=== PATIENT | female | born 2000 | race Caucasian/White ===

== ENCOUNTER → 2019-03-17 | Outpatient (CLI) | payer OTHER, SELFPAY ==
[2019-03-17 15:59] VITALS: BMI 17.7
[2019-03-18 01:51] LABS: Absolute Lymphocyte Count 1.53 X10^3/uL (0.83-4.51); Absolute Neutrophil Count 5.3 X10^3/uL (2.0-7.7); Basophil# 0.03 X10^3/uL; Basophil% 0.4 % (0-1); Eosinophil# 0.12 X10^3/uL; Eosinophils% 1.6 % (0-5); Hematocrit 35.7 % (37-47); Lymphocyte # 1.53 X10^3/ul (4.0); Lymphocyte % 19.9 % (19-41); Mean Corp Hgb Conc 33.6 g/dL (32-36); Mean Corpuscular Hgb 28.2 pg (27.0-32.0); Mean Corpuscular Volume 83.8 fL (81-99); Mean Platelet Vol. 10.3 fl (6.2-12.0); Monocyte# 0.67 X10^3/uL; Monocyte% 8.7 % (0-10); NRBC Flagged by Analyzer 0 % (0-5); Neutrophil % 69.1 % (47-70); Platelet Count 256 K/mm3 (150-450); RBC Distribution Width SD 36.2 fl (35.1-43.9); Red Blood Count 4.26 M/mm3 (4.2-5.4); White Blood Count 7.7 K/mm3 (4.4-11.0)
== END | disposition home or self-care (01) ==
PROVIDERS: Referring Provider Nurse Practitioner; Visit Provider Nurse Practitioner
DX: B27.90 Infectious mononucleosis, unspecified without complication (principal)
CPT/HCPCS: 85025

== ENCOUNTER → 2022-06-23 | Outpatient (CLI) | payer OTHER, SELFPAY ==
[2022-07-08 18:32] LABS: HPV Reflexed? NOT INDICATED
== END | disposition home or self-care (01) ==
PROVIDERS: Visit Provider Nurse Practitioner
DX: Z01.419 Encounter for gynecological examination (general) (routine) without abnormal findings (principal)
CPT/HCPCS: 88175; G0145

== ENCOUNTER → 2024-06-17 | Outpatient (CLI) | payer OTHER, SELFPAY ==
[2024-06-27 21:08] LABS: HPV Reflexed? NOT INDICATED
== END | disposition home or self-care (01) ==
PROVIDERS: PCP Nurse Practitioner; Referring Provider Nurse Practitioner; Visit Provider Nurse Practitioner
DX: Z01.419 Encounter for gynecological examination (general) (routine) without abnormal findings (principal)
CPT/HCPCS: 88175; G0145

== ENCOUNTER → 2025-03-09 | Outpatient (CLI) | payer OTHER, SELFPAY ==
--- OUTSIDE RECORDS SUMMARY | 2025-03-09 22:27 | XMS RPT_ITS | CCD ---
Author Organization [facility] Care Team Providers Care Sales Account Coordinator Name Role Phone Zenaida Grigsby Unavailable Unavailable Grigsby, Zenaida Lincoln Unavailable Unavailable Grigsby, Zenaida Lincoln Unavailable Unavailable AILEENANTONI Unavailable Unavailable AILEEN, ANTONI Bravo Unavailable Unavailable Grigsby, Zenaida Lincoln Unavailable Unavailable Grigsby, Zenaida Lincoln Unavailable Unavailable Grigsby, Zenaida Lincoln Unavailable Unavailable Grigsby, Zenaida Lincoln Unavailable Unavailable JANE PLATT Unavailable Unavailable Grigsby, Zenaida Lincoln Unavailable Unavailable Grigsby, Zenaida Lincoln Unavailable Unavailable Grigsby, Zenaida Lincoln Unavailable Unavailable Grigsby, Zenaida Lincoln Unavailable Unavailable Kenney Thorne Unavailable [phone] Unavailable Unavailable MD BURROUGHS STEVEN Attending Unavailable KENNEY THORNE Primary Care Unavailable JOEL PARSON Attending UnavailKENNEY Nelson Primary Care Unavailable Jaiden HIDE PASTER-Kenney MARY Primary Care Provide r Kenney Thorne Referring Unavailable Kenney Thorne Unavailable Kenney Thorne Primary Care Unavailable Medications Current Medications Medication Drug Class(es) Dates Sig (Normalized) Sig (Original) amoxicillin 500 mg oral capsule (4 sources) Penicillin-class Antibacterial Start: 05-15-2024 End: 05-22-2024 take 1 capsule by mouth every eight hours amoxicillin (Amoxil) 500 mg capsule Indications: Tooth ache Take 1 capsule (500 mg) by mouth every 8 hours for 7 days. 21 capsule 05/15/2024 05/22/2024 Active Start: 10-25-2021 End: 12-05-2021 take 875 mg by mouth twice daily Amoxicillin Discontinued 875 MG PO TWICE A DAY October 24, 2021 11:00pm December 05, 2021 5:54pm Start: 03-06-2021 End: 04-03-2021 take 875 mg by mouth twice daily Amoxicillin Discontinued 875 MG PO TWICE A DAY March 05, 2021 11:00pm April 03, 2021 4:38pm Start: 04-04-2020 End: 07-20-2020 take 500 mg by mouth twice daily Amoxicillin Discontinued 500 MG PO TWICE A DAY April 03, 2020 11:00pm July 20, 2020 10:40am Levonorgestrel-Ethinyl Estrad (5 sources) Progestin, Estrogen, Progestin-containing Intrauterine Device Start: 06-23-2022 take 1 tablet by mouth once daily Levonorgestrel-Ethinyl Estrad Active 1 TABLET PO DAILY June 23, 2022 5:38pm Start: 06-20-2021 End: 06-23-2022 take 1 tablet by mouth once daily Levonorgestrel-Ethinyl Estrad Discontinued 1 TABLET PO DAILY June 20, 2021 7:49pm June 23, 2022 5:46pm Start: 07-19-2020 End: 06-20-2021 take 1 tablet by mouth once daily Levonorgestrel-Ethinyl Estrad Discontinued 1 TABLET PO DAILY July 19, 2020 12:00am June 20, 2021 7:49pm take 1 tablet by issac th once daily levonorgestreL-ethinyl estrad (Nordette) 0.15-0.03 mg tablet Take 1 tablet by mouth once daily. Active multivitamin capsule (1 source) Start: 02-25-2018 take 1 capsule by mouth once daily multivitamin capsule Active 1 CAP PO DAILY February 24, 2018 11:00pm Completed/Discontinued Medications Medication Drug Class(es) Dates Sig (Normalized) Sig (Original) amoxicillin 875 mg / clavulanate 125 mg oral tablet (4 sources) Penicillin-class Antibacterial Start: 03-11-2022 End: 06-02-2022 take 1 tablet by mouth twice daily Amoxicillin-Pot Clavulanate Discontinued 1 TABLET PO TWICE A DAY March 10, 2022 11:00pm June 02, 2022 5:05pm Start: 12-05-2021 End: 01-30-2022 take 1 tablet by mouth twice daily Amoxicillin-Pot Clavulanate Discontinued 1 TABLET PO TWICE A DAY December 04, 2021 11:00pm January 30, 2022 5:36pm Start: 07-15-2021 Amoxicillin-Po t Clavulanate 875-125 MG Oral Tablet Quantity: 20 Refills: 0 Ordered: 15-Jul-2021 DO Start : 15-Jul-2021 Complete Start: 06-13-2021 End: 07-30-2021 take 1 tablet by mouth twice daily Amoxicillin-Pot Clavulanate Discontinued 1 TABLET PO TWICE A DAY June 13, 2021 12:00am July 30, 2021 6:00pm azithromycin 250 mg oral tablet (3 sources) Macrolide Antimicrobial Start: 03-03-2022 End: 03-08-2022 Azithromycin Discontinued 250 MG PO daily 6 5 March 03, 2022 7:20pm March 07, 2022 11:05pm 2 po qd for 1 day then 1 po qd for 4 days with food or after eating Start: 01-30-2022 End: 02-04-2022 Azithromycin Discontinued 25 0 MG PO daily 6 5 January 29, 2022 11:00pm February 03, 2022 11:03pm 2 po qd for 1 day then 1 po qd for 4 days with food or after eating Start: 03-19-2019 End: 03-24-2019 Azithromycin Discontinued 25 0 MG PO daily 6 5 March 18, 2019 11:00pm March 23, 2019 11:07pm 2 po qd for 1 day then 1 po qd for 4 days with food or after eating cefdinir 300 mg oral capsule (3 sources) Cephalosporin Antibacterial Start: 06-02-2022 End: 06-23-2022 take 300 mg by mouth twice daily Cefdinir Discontinued 300 MG PO TWICE A DAY June 02, 2022 5:08pm June 23, 2022 5:46pm Start: 04-03-2021 Cefdinir 300 M G Oral Capsule Quantity: 20 Refills: 0 Ordered: 03-Apr-2021 DO Start : 03-Apr-2021 Complete Start: 04-03-2021 End: 06-13-2021 take 300 mg by mouth twice daily Cefdinir Discontinued 300 MG PO TWICE A DAY April 02, 2021 11:00pm June 13, 2021 4:42pm cephalexin 250 mg oral capsule (1 source) Cephalosporin Antibacterial Start: 11-29-2019 End: 04-04-2020 take 250 mg by mouth twice daily Cephalexin Discontinued 250 MG PO TWICE A DAY November 28, 2019 11:00pm April 04, 2020 2:26pm ciprofloxacin 500 mg oral tablet (2 sources) Quinolone Antimicrobial Start: 07-30-2021 End: 10-25-2021 take 1 tablet by mouth twice daily Ciprofloxacin HCl - 500 MG Oral Tablet TAKE 1 TABLET BY MOUTH TWICE DAILY Quantity: 14 Refills: 0 Ordered: 30-Jul-2021 DO Start : 30-Jul-2021 Complete clotrimazole 10 mg/ml topical cream (1 source) Azole Antifungal Start: 02-24-2018 Clotrimazole 1 % External Cream APPLY SPARINGLY TO AFFECTED AREA(S) TWICE DAILY Quantity: 1 Refills: 1 Ordered: 24-Feb-2018 Zenaida Grigsby MD Start : 24-Feb-2018 Active Drospirenone-Ethiny l Estradiol (3 sources) Progestin, Estrogen Start: 09-13-2019 End: 07-19-2020 take 1 tablet by mouth once daily Drospirenone-Ethiny l Estradiol Discontinued 1 TABLET PO DAILY September 13, 2019 8:30pm July 19, 2020 6:41pm Start: 08-16-2019 End: 09-13-2019 take 1 tablet by mouth once daily Drospirenone-Ethinyl Estradiol Discontinued 1 TABLET PO DAILY August 16, 2019 8:02pm September 13, 2019 8:30pm Start: 11-01-2018 End: 08-16-2019 take 1 tablet by mouth once daily Drospirenone-Ethinyl Estradiol Discontinued 1 TABLET PO DAILY October 31, 2018 11:00pm August 16, 2019 8:03pm Norethindrone-E.Estradiol-Ir on (1 source) Estrogen Start: 07-21-2018 End: 03-17-2019 Norethindrone-E.Estradiol-Ir on (07/25 (28)) 1 mg-20 mcg (21)/75 mg (7) tablet Discontinued 1 TABLET PO DAILY July 21, 2018 12:00am March 17, 2019 3:02pm fluconazole 150 mg oral tabl et (3 sources) Azole Antifungal Start: 10-25-2021 Fluconazole 150 MG Oral Tabl et Quantity: 2 Refills: 0 Ordered: 25-Oct-2021 DO Start : 25-Oct-2021 Complete Start: 07-30-2021 End: 03-04-2022 Fluconazole Discontinued 150 MG PO Q3D 2 October 25, 2021 7:17pm March 04, 2022 10:39am Marlissa 0.15-30 MG-MCG Oral Tablet (1 source) Start: 06-20-2021 take 1 tablet by mouth once daily Marlissa 0.15-30 MG-MCG Oral Tablet TAKE 1 TABLET BY MOUTH DAILY Quantity: 28 Refills: 0 Ordered: 06-Nov-2021 DO Start : 20-Jun-2021 Active meclizine hydrochloride 12.5 mg oral tablet (2 sources) Antiemetic Start: 06-13-2021 Meclizine HCl - 12.5 MG Oral Tablet Quantity: 40 Refills: 0 Ordered: 13-Jun-2021 DO Start : 13-Jun-2021 Complete Start: 06-13-2021 take 12.5 mg by mout h three times daily Meclizine Active 12.5 MG PO THREE TIMES A DAY June 13, 2021 12:00am predniSONE 20 mg oral tablet (2 sources) Start: 12-05-2021 End: 01-30-2022 take 40 mg by mouth once daily Prednisone Discontinued 40 MG PO DAILY December 04, 2021 11:00pm January 30, 2022 5:36pm Start: 03-17-2019 End: 03-23-2019 take 40 mg by mouth once daily Prednisone Discontinued 40 MG PO DAILY 12 March 16, 2019 11:00pm March 22, 2019 11:07pm terbinafine 250 mg oral tablet (1 source) Allylamine Antifungal Start: 05-04-2019 End: 11-29-2019 take 250 mg by mouth once daily Terbinafine Hcl Discontinued 250 MG PO DAILY May 03, 2019 11:00pm November 29, 2019 7:09pm Problems Active Problems Problem Classification Problem Date Documented Da te Episodic/Chronic Allergic reactions (1 source) Inflammatory dermatosis; Translations: [Dermatitis, unspecified] Episodic Conditions associated with dizziness or vertigo (2 sources) Dizziness; Translations: [Dizziness and giddiness] Onset: 02-20-2023 Episodic Deficiency and other anemia (2 sources) Anemia; Translations: [Anemia, unspecified] Episodic Disorders of teeth and jaw (2 sources) Toothache; Translations: [Other specified disorders of teeth and supporting structures] 05-15-2024 Episodic E Codes: Natural/environment (1 source) Bitten by cat, initial encounter; Translations: [Cat bite, initial encounter] Onset: 03-04-2023 Episodic Fever of unknown origin (1 source) Fever; Translations: [Fever, unspecified] Episodic Genitourinary symptoms and ill-defined conditions (1 source) Dysuria; Translations: [Dysuria] Episodic Menstrual disorders (2 sources) Break-through bleeding; Translations: [Excessive and frequent menstruation with irregular cycle] Chronic Mood disorders (1 source) Depressive disorder; Translations: [Depression] Chronic Mycoses (2 sources) Tinea corporis; Translations: [Dermatophytosis of the body] Episodic Other connective tissue disease (1 source) Pain in left hand; Translations: [Pain of left hand] Onset: 03-04-2023 Episodic Other ear and sense organ disorders (1 source) Hearing loss of right ear; Translations: [Unspecified hearing loss, right ear] Chronic Other gastrointestinal disorders (2 sources) Dysphagia; Translations: [Dysphagia, unspecified] Episodic Other injuries and conditions due to external causes (1 source) Superficial injury of skin; Translations: [Other injury of unspecified body region, initial encounter] Episodic Other nervous system disorders (1 source) Trigeminal neuralgia; Translations: [Trigeminal neuralgia] Onset: 02-20-2023 Episodic Other upper respiratory infections (1 source) Maxillary sinusitis; Translations: [Chronic maxillary sinusitis] Chronic Other upper respiratory infections (5 sources) Sore throat symptom; Translations: [Acute pharyngitis] Resolved: 12-09-2016 Episodic Otitis media and related conditions (4 sources) Dysfunction of eustachian tube; Translations: [Dysfunction of Eustachian tube] Resolved: 12-09-2016 Episodic Spondylosis; intervertebral disc disorders; other back problems (1 source) Cervicalgia; Translations: [Neck pain] Onset: 02-20-2023 Episodic Sprains and strains (2 sources) Strain of trapezius muscle; Translations: [Strain of other muscles, fascia and tendons at shoulder and upper arm level, right arm, initial encounter] 07-07-2024 Episodic Unclassified (2 sources) Strain of great toe 07-07-2024 Urinary tract infections (1 source) Cystitis; Translations: [Cystitis, unspecified without hematuria] Episodic Viral infection (2 sources) Infectious mononucleosis; Translations: [Infectious mononucleosis] Episodic Comment on above: resolving; Past or Other Problems Problem Classification Problem Date Documented Da te Episodic/Chronic Other gastrointestinal disorders (1 source) H/O: gastrointestinal disease; Translations: [Personal history of other diseases of digestive system] Resolved: 7 Episodic Comment on above: Added by Problem Corine pulido Migration; 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 Attention to the great toe demonstrates no specific abnormality. Signed by: Jim Kaye 07/07/2024 5:46 PM Dictation workstation: [id number] MMODAL Interpreted By: Jim Alexandre, STUDY: XR FOOT RIGHT 3+ VIEWS INDICATION: Signs/Symptoms:pain, injury prox great toe. COMPARISON: None ACCESSION NUMBER(S): [id number] ORDERING CLINICIAN: ELIANE HAAS FINDINGS: No osseous, articular, or soft tissue abnormality. [facility] MMODAL Jim Kaye MD - 07/07/2024 Interpreted By: Jim Kaye, STUDY: XR FOOT RIGHT 3+ VIEWS INDICATION: Signs/Symptoms:pain, injury prox great toe. COMPARISON: None ACCESSION NUMBER(S): [id number] ORDERING CLINICIAN: ELIANE HAAS FINDINGS: No osseous, articular, or soft tissue abnormality. IMPRESSION: Normal radiographs right foot. Attention to the great toe demonstrates no specific abnormality. Signed by: Jim Kaye 07/07/2024 5:46 PM Dictation workstation: [id number] [facility] Work Phone: Radiology Study observation (narrative) [facility] Work Phone: XR Foot - right 3 ViewsOrder ed By: Jim Kaye on 07-07-2024 [facility] Work Phone: PAP IG w/Reflex HR HPV Aptim aon 06-27-2024 ADEQ Comment Normal . [facility] Comment on above: Order Comment: Speci men Comment: No. of containers..01 ThinPrep Vial Result Comment: Sati sfactory for evaluation. Endocervical and/or squamous metaplastic cells (endocervical component) are present. Performed By: #### L 7400.0357 #### [facility] [address] [place], [address] COMM . Normal . [facility] Comment on above: Order Comment: Speci men Comment: No. of containers..01 ThinPrep Vial Performed By: #### L 7400.0357 #### [facility] [address] [place], [address] COMMENT Comment Normal . [facility] Comment on above: Order Comment: Speci men Comment: No. of containers..01 ThinPrep Vial Result Comment: This liquid based ThinPrep(R) pap test was screened with the use of an image guided system. Performed By: #### L 7400.0357 #### [facility] [address] [place], [address] DIAG Comment Normal . [facility] Comment on above: Order Comment: Speci men Comment: No. of containers..01 ThinPrep Vial Result Comment: NEGA TIVE FOR INTRAEPITHELIAL LESION OR MALIGNANCY. THIS SPECIMEN WAS RESCREENED PART OF OUR FILTER WASHER AND PRESSER PROGRAM. Performed By: #### L 7400.0357 #### [facility] [address] [place], [address] HPV RFLX Comment Normal . [facility] Comment on above: Order Comment: Speci men Comment: No. of containers..01 ThinPrep Vial Result Comment: The HPV DNA reflex criteria were not met with this specimen result therefore, no HPV testing was performed. Performed at: [address] [id number] Creative Guru: mAada Fonseca MD, Phone: [phone] Performed By: #### L 7400.0357 #### [facility] [address] [place], [place], [id number] PAPSMR Comment Normal . [facility] Comment on above: Order Comment: Speci men Comment: No. of containers..01 ThinPrep Vial Result Comment: The Pap smear is a screening test designed to aid in the detection of premalignant and malignant conditions of the uterine cervix. It is not a diagnostic procedure and should not be used as the sole means of detecting cervical cancer. Both false-positive and false-negative reports do occur. Performed By: #### L 7400.0357 #### [facility] [address] [place], [place], [id number] PERFORM Comment Normal . [facility] Comment on above: Order Comment: Speci men Comment: No. of containers..01 ThinPrep Vial Result Comment: Norma Weber, Filler Picker (ASCP) Performed By: #### L 7400.0357 #### [facility] [address] [place], [place], [id number] QC REV Comment Normal . [facility] Comment on above: Order Comment: Speci men Comment: No. of containers..01 ThinPrep Vial Result Comment: Irena Hutchinson, Filler Picker Performed By: #### L 7400.0357 #### [facility] [address] [place], [place], [id number] ED NOTEon 03-04-2023 ED NOTE HNO ID: [id number] Author: Cyndee Sifuentes RN Service: ? Author Type: Registered Nurse Type: ED Notes Filed: 03/04/2023 2:41 PM Note Text: pt given dc instructions and follow up care she verbalzied understanding. [facility] ED NOTE HNO ID: [id number] Author: Cyndee Sifuentes RN Service: ? Author Type: Registered Nurse Type: ED Notes Filed: 03/04/2023 2:34 PM Note Text: pt given Vaccine information sheet. [facility] ED NOTE HNO ID: [id number] Author: Cyndee Sifuentes RN Service: ? Author Type: Registered Nurse Type: ED Notes Filed: 03/04/2023 1:53 PM Note Text: dr in room to see pt. 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 Left hand. No swelling or redness. 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 The cat just got his first rabies vaccine today but is an indoor cat. Her tetanus is not up-to-date she has no symptoms no pain or swelling. No past medical history on file. No past surgical history on file. No family history on file. Social History Tobacco Use - Smoking status: Never - Smokeless tobacco: Never Vaping Use - Vaping Use: Never used Substance and Sexual Activity - Alcohol use: Yes Comment: occassional - Drug use: Not on file - Sexual activity: Not on file ALLERGIES No Known Allergies Review of Systems Musculoskeletal: Cat bite left hand per history All other systems reviewed and are negative. Physical Exam Vitals [03/04/23 1346] BP Pulse Temp Temp src Resp SpO2 Weight Height 117/64 77 37.2 ?C (99 ?F) Oral 16 100 % 52.2 kg (115 lb) 1.676 m (5' 6) Physical Exam Constitutional: Appearance: Normal appearance. Pulmonary: Effort: Pulmonary effort is normal. Musculoskeletal: General: Normal range of motion. Skin: General: Skin is warm. Comments: Patient with small puncture wounds to the dorsum of the left hand in the volar aspect of the left long finger. No evidence of erythema no evidence of infection no evidence of drainage. No foreign body Neurological: General: No focal deficit present. Mental Status: She is alert. Psychiatric: Mood and Affect: Mood normal. Diagnostic Testing ED Labs Ordered and Reviewed - No data to display Procedures ED Course / Clinical Impression Clinical Impressions as of 03/04/23 1359 Cat bite, initial encounter Pain of left hand MDM / Disposition / Plan Patient given tetanus update given antibiotics that are appropriate and told to follow-up with primary care physicians. 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 Counseled patient regarding suspected diagnosis. SIGNATURE: MD DAVID Ann STEVEN 03/04/23 1449 [facility]ALTH 02-20-2023 [facility] HNO ID: [id number] Author: Tramaine Faye RT(R) Service: Radiology Author Type: Technologist Type: Allied Health Filed: 02/20/2023 8:23 PM Note Text: Radiology Service Progress Note PATIENT NAME: Maegan Quintero DATE OF SERVICE: February 20, 2023 TIME: 8:23 PM PATIENT IDENTITY VERIFICATION COMPLETED USING TWO (2) IDENTIFIERS: Name and Date of confirmed by patient verbally and Name and Date of confirmed by identification band. FALL SCREENING: Has the patient had 2 falls in the last year or 1 fall with injury or currently using an Ambulatory Assistive Device (Walker, Cane, Wheelchair, Crutches, etc.)? Emergency Room Patient: Screened in ED PATIENT GENDER DATA: Female. status: : No status: NO. PATIENT RELEVANT IMPLANT DATA REVIEWED: Not Applicable RADIOLOGY DEPARTMENT: CT; Exam(s) Completed: Brain PERIPHERAL IV DATA: Inpatient: see LDA documentation SIGNED BY: RT Dayan(R) February 20, 2023 8:23 PM [facility] CBC W Auto Differential pane l (Bld)on 02-20-2023 Basophils (Bld) [#/Vol] 10*3/uL Normal <0.11 [facility] Comment on above: Order Comment: Speci men Type: BLOOD SPECIMEN Ordering Facility: [facility] Address: [address] [place] [id number] Performed By: #### 5 7021-8 #### [facility] CLIA [id number] [address] [place] [address] [place] Basophils/100 WBC (Bld) 0.4 % Normal [facility] Comment on above: Order Comment: Speci men Type: BLOOD SPECIMEN Ordering Facility: [facility] Address: [address] [address] Performed By: #### 5 7021-8 #### [facility] CLIA [id number] [address] [place] [address] [place] Differential cell count method Nom (Bld) Auto Normal [facility] Comment on above: Order Comment: Speci men Type: BLOOD SPECIMEN Ordering Facility: [facility] Address: [address] [place] [address] Performed By: #### 5 7021-8 #### [facility] CLIA [id number] [address] [place] [address] [place] Eosinophils (Bld) [#/Vol] 0.03 10*3/uL Normal <0.46 [facility] Comment on above: Order Comment: Speci men Type: BLOOD SPECIMEN Ordering Facility: [facility] Address: [address] [address] Performed By: #### 5 7021-8 #### [facility] CLIA [id number] [address] [place] Eosinophils/100 WBC (Bld) 0.5 % Normal [facility] Comment on above: Order Comment: Speci men Type: BLOOD SPECIMEN Ordering Facility: [facility] Address: [address] [address] Performed By: #### 5 7021-8 #### [facility] CLIA [id number] [address] [place] Erythrocyte distribution width (RBC) [Ratio] 13.8 % Normal 11.5-15.0 [facility] Comment on above: Order Comment: Speci men Type: BLOOD SPECIMEN Ordering Facility: [facility] Address: [address] [address] Performed By: #### 5 7021-8 #### [facility] CLIA [id number] [address] [place] Hematocrit (Bld) [Volume fraction] 35.2 % Low 36.0-46.0 [facility] Comment on above: Order Comment: Speci men Type: BLOOD SPECIMEN Ordering Facility: [facility] Address: [address] [address] Performed By: #### 5 7021-8 #### [facility] CLIA [id number] [address] [place] [address] [place] Hemoglobin (Bld) [Mass/Vol] 11.4 g/dL Low 11.5-15.5 [facility] Comment on above: Order Comment: Speci men Type: BLOOD SPECIMEN Ordering Facility: [facility] Address: [address] [address] Performed By: #### 5 7021-8 #### [facility] CLIA [id number] [address] [place] [address] [place] Immature granulocytes (Bld) [#/Vol] 10*3/uL Normal <0.10 [facility] Comment on above: Order Comment: Speci men Type: BLOOD SPECIMEN Ordering Facility: [facility] Address: [address] [address] Performed By: #### 5 7021-8 #### [facility] CLIA [id number] [address] [place] Immature granulocytes/100 WBC (Bld) 0.2 % Normal [facility] Comment on above: Order Comment: Speci men Type: BLOOD SPECIMEN Ordering Facility: [facility] Address: [address] [address] Performed By: #### 5 7021-8 #### [facility] CLIA [id number] [address] [place] [address] [place] Lymphocytes (Bld) [#/Vol] 1.59 10*3/uL Normal 1.00-4.00 [facility] Comment on above: Order Comment: Speci men Type: BLOOD SPECIMEN Ordering Facility: [facility] Address: [address] [address] Performed By: #### 5 7021-8 #### [facility] CLIA [id number] [address] [place] [facility] Lymphocytes/100 WBC (Bld) 27.9 % Normal [facility] Comment on above: Order Comment: Speci men Type: BLOOD SPECIMEN Ordering Facility: [facility] Address: [address] [address] Performed By: #### 5 7021-8 #### [facility] CLIA [id number] [address] MCH (RBC) [Entitic mass] 25.6 pg Low 26.0-34.0 [facility] Comment on above: Order Comment: Speci men Type: BLOOD SPECIMEN Ordering Facility: [facility] Address: [address] [address] Performed By: #### 5 7021-8 #### [facility] CLIA [id number] [address] [place] [facility] MCHC (RBC) [Mass/Vol] 32.4 g/dL Normal 30.5-36.0 [facility] Comment on above: Order Comment: Speci men Type: BLOOD SPECIMEN Ordering Facility: [facility] Address: [address] [address] Performed By: #### 5 7021-8 #### [facility] CLIA [id number] [address] MCV (RBC) [Entitic vol] 79.1 fL Low 80.0-100.0 [facility] Comment on above: Order Comment: Speci men Type: BLOOD SPECIMEN Ordering Facility: [facility] Address: [address] [address] Performed By: #### 5 7021-8 #### [facility] CLIA [id number] [address] Monocytes (Bld) [#/Vol] 0.46 10*3/uL Normal <0.87 [facility] Comment on above: Order Comment: Speci men Type: BLOOD SPECIMEN Ordering Facility: [facility] Address: [address] [address] Performed By: #### 5 7021-8 #### [facility] CLIA [id number] [address] [place] [address] [place] Monocytes/100 WBC (Bld) 8.1 % Normal [facility] Comment on above: Order Comment: Speci men Type: BLOOD SPECIMEN Ordering Facility: [facility] Address: [address] [address] Performed By: #### 5 7021-8 #### [facility] CLIA [id number] [address] [place] [address] [place] Neutrophils (Bld) [#/Vol] 3.59 10*3/uL Normal 1.45-7.50 [facility] Comment on above: Order Comment: Speci men Type: BLOOD SPECIMEN Ordering Facility: [facility] Address: [address] [place] [address] Performed By: #### 5 7021-8 #### [facility] CLIA [id number] [address] [place] Neutrophils/100 WBC (Bld) 62.9 % Normal [facility] Comment on above: Order Comment: Speci men Type: BLOOD SPECIMEN Ordering Facility: [facility] Address: [address] [place] [address] Performed By: #### 5 7021-8 #### [facility] CLIA [id number] [address] [place] Nucleated RBC (Bld) [#/Vol] 10*3/uL Normal <0.01 [facility] Comment on above: Order Comment: Speci men Type: BLOOD SPECIMEN Ordering Facility: [facility] Address: [address] [address] Performed By: #### 5 7021-8 #### [facility] CLIA [id number] [address] [place] Nucleated RBC/100 WBC (Bld) [Ratio] 0.0 /100 WBC Normal [facility] Comment on above: Order Comment: Speci men Type: BLOOD SPECIMEN Ordering Facility: [facility] Address: [address] [place] [address] Performed By: #### 5 7021-8 #### [facility] CLIA [id number] [address] [place] [address] [place] Platelet mean volume (Bld) [Entitic vol] 9.5 fL Normal 9.0-12.7 [facility] Comment on above: Order Comment: Speci men Type: BLOOD SPECIMEN Ordering Facility: [facility] Address: [address] [place] [address] Performed By: #### 5 7021-8 #### [facility] CLIA [id number] [address] [place] [address] [place] Platelets (Bld) [#/Vol] 369 10*3/uL Normal 150-400 [facility] Comment on above: Order Comment: Speci men Type: BLOOD SPECIMEN Ordering Facility: [facility] Address: [address] [place] [address] Performed By: #### 5 7021-8 #### [facility] CLIA [id number] [address] [place] [address] [place] RBC (Bld) [#/Vol] 4.45 10*6/uL Normal 3.90-5.20 [facility] Comment on above: Order Comment: Speci men Type: BLOOD SPECIMEN Ordering Facility: [facility] Address: [address] [place] [address] Performed By: #### 5 7021-8 #### [facility] CLIA [id number] [address] [place] [address] [place] WBC (Bld) [#/Vol] 5.70 10*3/uL Normal 3.70-11.00 [facility] Comment on above: Order Comment: Speci men Type: BLOOD SPECIMEN Ordering Facility: [facility] Address: [address] [place] [address] Performed By: #### 5 7021-8 #### [facility] CLIA [id number] [address] BRAIN WO IVCONon 02-21-[address] BRAIN WO IVCON * * *Final Report* * * DATE OF EXAM: Feb 20 2023 8:31PM [facility] [id number] - CT BRAIN WO IVCON / PROCEDURE REASON: Numbness or tingling, paresthesia (Ped 0-18y) * * * * Physician Interpretation * * * * EXAMINATION: CT BRAIN WO IVCON CLINICAL HISTORY: Numbness or tingling, paresthesias. Left cheek paresthesia TECHNIQUE: Serial axial images without IV contrast were obtained from the vertex to the foramen magnum. MQ: CTBWO_3 CT Radiation dose: Integrated Dose-Length Product (DLP) for this visit = 831 mGy*cm CT Dose Reduction Employed: No dose reduction techniques were required COMPARISON: None. RESULT: Post-operative change: None. Acute change: No evidence of an acute infarct or other acute parenchymal process. Hemorrhage: No evidence of acute intracranial hemorrhage. ECASS hemorrhagic transformation score: Not Applicable Mass Lesion / Mass Effect: There is no evidence of an intracranial mass or extraaxial fluid collection. No significant mass effect. Chronic change: None apparent. Parenchyma: There is no significant volume loss. The brain parenchyma is otherwise within normal limits for age. Ventricles: The ventricles are within normal limits of size and configuration for age. Paranasal sinuses and skull base: The visualized paranasal sinuses are grossly clear. The skull base and imaged soft tissues are unremarkable. Service Writer Advisor (topogram) images: Unremarkable. IMPRESSION: NO EVIDENCE OF AN ACUTE INTRACRANIAL PROCESS Spa Director/Finance: PSCB Transcribe Date/Time: Feb 20 2023 8:34P Dictated by : ARGELIA NEAL MD This examination was interpreted and the report reviewed and electronically signed by: ARGELIA NEAL MD on Feb 20 2023 8:35PM EST [id number] Normal [facility] Comprehensive metabolic 2000 panelon 02-20-2023 Albumin [Mass/Vol] 4.9 g/dL Normal 3.9-4.9 [facility] Comment on above: Order Comment: Andrew farr Type: BLOOD SPECIMEN Ordering Facility: [facility] Address: [address] [place] [id number] Performed By: #### 2 4323-8 #### [facility] CLIA [id number] [address] [place] [address] [place] ALP [Catalytic activity/Vol] 67 U/L Normal 34-123 [facility] Comment on above: Order Comment: Andrew farr Type: BLOOD SPECIMEN Ordering Facility: [facility] Address: [address] [address] Performed By: #### 2 4323-8 #### [facility] CLIA [id number] [address] ALT [Catalytic activity/Vol] 15 U/L Normal 7-38 [facility] Comment on above: Order Comment: Speci men Type: BLOOD SPECIMEN Ordering Facility: [facility] Address: [address] [address] Performed By: #### 2 4323-8 #### [facility] CLIA [id number] [address] [place] Anion gap [Moles/Vol] 13 mmol/L Normal 9-18 [facility] Comment on above: Order Comment: Speci men Type: BLOOD SPECIMEN Ordering Facility: [facility] Address: [address] [place] [address] Performed By: #### 2 4323-8 #### [facility] CLIA [id number] [address] [place] AST [Catalytic activity/Vol] 18 U/L Normal 13-35 [facility] Comment on above: Order Comment: Speci men Type: BLOOD SPECIMEN Ordering Facility: [facility] Address: [address] [place] [address] Performed By: #### 2 4323-8 #### [facility] CLIA [id number] [address] [place] Bilirubin [Mass/Vol] 0.3 mg/dL Normal 0.2-1.3 [facility] Comment on above: Order Comment: Speci men Type: BLOOD SPECIMEN Ordering Facility: [facility] Address: [address] [address] Performed By: #### 2 4323-8 #### [facility] CLIA [id number] [address] Calcium [Mass/Vol] 9.7 mg/dL Normal 8.5-10.2 [facility] Comment on above: Order Comment: Speci men Type: BLOOD SPECIMEN Ordering Facility: [facility] Address: [address] [address] Performed By: #### 2 4323-8 #### [facility] CLIA [id number] [address] Chloride [Moles/Vol] 102 mmol/L Normal 97-105 [facility] Comment on above: Order Comment: Speci men Type: BLOOD SPECIMEN Ordering Facility: [facility] Address: [address] [address] Performed By: #### 2 4323-8 #### [facility] CLIA [id number] [address] CO2 [Moles/Vol] 23 mmol/L Normal 22-30 [facility] Comment on above: Order Comment: Speci men Type: BLOOD SPECIMEN Ordering Facility: [facility] Address: [address] [place] [address] Performed By: #### 2 4323-8 #### [facility] CLIA [id number] [address] [facility] Creatinine [Mass/Vol] 0.65 mg/dL Normal 0.58-0.96 [facility] Comment on above: Order Comment: Speci men Type: BLOOD SPECIMEN Ordering Facility: [facility] Address: [address] [place] [address] Performed By: #### 2 4323-8 #### [facility] CLIA [id number] [address] Creatinine and Glomerular filtration rate.predicted panel (S/P/Bld) 127 mL/min/1.73m??? Normal >=60 [facility] Comment on above: Order Comment: Speci men Type: BLOOD SPECIMEN Ordering Facility: [facility] Address: [address] [place] [address] Result Comment: Whitney mated Glomerular Filtration Rate (eGFR) is calculated using the 2020 CKD-EPI creatinine equation. This equation utilizes serum creatinine, sex, and age as parameters. The creatinine assay has traceable calibration to isotope dilution-mass spectrometry. Refer to KDIGO guidelines for clinical interpretation. In patients with unstable renal function, e.g. those with acute kidney injury, the eGFR may not accurately reflect actual GFR. Performed By: #### 2 4323-8 #### [facility] CLIA [id number] [address] [place] [address] [place] Glucose [Mass/Vol] 84 mg/dL Normal 74-99 [facility] Comment on above: Order Comment: Andrew farr Type: BLOOD SPECIMEN Ordering Facility: [facility] Address: [address] [place] [address] Result Comment: The [place] Diabetes Association (ADA) provides guidance for cutoff values for fasting glucose and random glucose. The ADA defines fasting as no caloric intake for at least 8 hours. Fasting plasma glucose results between 100 to 125 mg/dL indicate increased risk for diabetes (prediabetes). Fasting plasma glucose results greater than or equal to 126 mg/dL meet the criteria for diagnosis of diabetes. In the absence of unequivocal hyperglycemia, results should be confirmed by repeat testing. In a patient with classic symptoms of hyperglycemia or hyperglycemic crisis, random plasma glucose results greater than or equal to 200 mg/dL meet the criteria for diagnosis of diabetes. Reference: Standards of Medical Care in Diabetes 2016, [place] Diabetes Association. Diabetes Care. 2016.39(Suppl 1). Performed By: #### 2 4323-8 #### [facility] CLIA [id number] [address] [place] [address] [place] Potassium [Moles/Vol] 4.0 mmol/L Normal 3.7-5.1 [facility] Comment on above: Order Comment: Andrew farr Type: BLOOD SPECIMEN Ordering Facility: [facility] Address: [address] [place] [address] Performed By: #### 2 4323-8 #### [facility] CLIA [id number] [address] [place] [address] [place] Protein [Mass/Vol] 8.0 g/dL Normal 6.3-8.0 [facility] Comment on above: Order Comment: Andrew farr Type: BLOOD SPECIMEN Ordering Facility: [facility] Address: [address] [place] [address] Performed By: #### 2 4323-8 #### [facility] CLIA [id number] [address] [place] [address] [place] Sodium [Moles/Vol] 138 mmol/L Normal 136-144 [facility] Comment on above: Order Comment: Speci men Type: BLOOD SPECIMEN Ordering Facility: [facility] Address: [address] Performed By: #### 2 4323-8 #### [facility] CLIA [id number] [address] Urea nitrogen [Mass/Vol] 8 mg/dL Normal 7-21 [facility] Comment on above: Order Comment: Speci men Type: BLOOD SPECIMEN Ordering Facility: [facility] Address: [address] [id number] Performed By: #### 2 4323-8 #### [facility] CLIA [id number] [address] ED NOTEon 02-20-2023 ED NOTE HNO ID: [id number] Author: Tia De La Cruz RN Service: ? Author Type: Registered Nurse Type: ED Notes Filed: 02/20/2023 9:44 PM Note Text: Discharge instructions reviewed, verbalized understanding. Patient discharged with all belongings. [facility] ED NOTE HNO ID: [id number] Author: Mitzi Fairbanks RN Service: Nursing Author Type: Registered Nurse Type: ED Notes Filed: 02/20/2023 7:30 PM Note Text: Pt arrives with c/o left sided facial numbness/ tightness, dizziness and some neck pain. Pt denies nausea, vomiting, diarrhea but does have a slight headache. [facility] ED PROV NOTEon 02-20-2023 ED PROV NOTE HNO ID: [id number] Author: Joel Parson MD Service: ? Author Type: Physician Type: ED Provider Notes Filed: 02/20/2023 10:42 PM Note Text: ED Provider Note Patient Name: Maegan Quintero : 2000 SERVICE DATE: 02/20/23 History Patient presents with: Dizziness Neck Pain Musculoskeletal Problem: Left side of face HPI-patient is a 22-year-old white female that states about 4:00 started having paresthesias of her left cheek. She states that the cheek felt warm and was red. That is since subsided except for small amount of paresthesias and right-sided neck pain. No fevers or chills no nausea or vomiting. No past medical history on file. No past surgical history on file. No family history on file. Social History Tobacco Use Smoking status: Never Smokeless tobacco: Never Vaping Use Vaping Use: Never used Substance and Sexual Activity Alcohol use: Yes Comment: occassional Drug use: Not on file Sexual activity: Not on file ALLERGIES No Known Allergies Review of Systems Constitutional: Negative for diaphoresis and fever. HENT: Negative for congestion, ear pain, hearing loss, rhinorrhea, sinus pressure and sore throat. Left cheek paresthesias Eyes: Negative for photophobia and visual disturbance. Respiratory: Negative for cough and shortness of breath. Cardiovascular: Negative for chest pain and leg swelling. Gastrointestinal: Negative for abdominal pain. Endocrine: Negative for polyuria. Genitourinary: Negative for dysuria. Musculoskeletal: Positive for neck pain. Negative for arthralgias and myalgias. Skin: Negative for color change and rash. Allergic/Immunologic: Negative for immunocompromised state. Neurological: Positive for dizziness and headaches. Negative for seizures and weakness. Hematological: Negative for adenopathy. Psychiatric/Behavioral: Negative for agitation. All other systems reviewed and are negative. Physical Exam Vitals BP Pulse Temp Temp src Resp SpO2 Weight Height 02/20/23192502/20/23192502/20/23192502/20/23192502/20/23192502/20/23192502/20/231926 -- 107/62 75 36.8 ?C (98.2 ?F) Oral 16 100 % 52.6 kg (116 lb) Physical Exam Vitals and nursing note reviewed. Constitutional: Appearance: Normal appearance. HENT: Head: Normocephalic and atraumatic. Right Ear: Tympanic membrane, ear canal and external ear normal. Left Ear: Tympanic membrane, ear canal and external ear normal. Nose: Nose normal. Mouth/Throat: Mouth: Mucous membranes are moist. Pharynx: Oropharynx is clear. Eyes: Extraocular Movements: Extraocular movements intact. Conjunctiva/sclera: Conjunctivae normal. Pupils: Pupils are equal, round, and reactive to light. Cardiovascular: Rate and Rhythm: Normal rate and regular rhythm. Pulses: Normal pulses. Heart sounds: Normal heart sounds. Pulmonary: Effort: Pulmonary effort is normal. Breath sounds: Normal breath sounds. Abdominal: General: Abdomen is flat. Bowel sounds are normal. Palpations: Abdomen is soft. Musculoskeletal: General: Normal range of motion. Cervical back: Normal range of motion. Skin: General: Skin is warm and dry. Neurological: General: No focal deficit present. Mental Status: She is alert and oriented to person, place, and time. Cranial Nerves: No cranial nerve deficit. Sensory: No sensory deficit. Motor: No weakness. Coordination: Coordination normal. Gait: Gait normal. Deep Tendon Reflexes: Reflexes normal. Comments: There is no facial deformity and there is no neurodeficits Psychiatric: Mood and Affect: Mood normal. Behavior: Behavior normal. Thought Content: Thought content normal. Diagnostic Testing ED Labs Ordered and Reviewed - No data to display Procedures ED Course / Clinical Impression Clinical Impressions as of 02/20/232124 Trigeminal neuralgia Neck pain Dizziness MDM / Disposition / Plan Patient is a 22-year-old white female that has had paresthesias in her left cheek with a sudden onset at 4:00 this afternoon. She was not slurring her speech. She says over time her symptoms have resolved other than she had some right-sided neck pain and dizziness. No fevers or chills no current headaches. Her work-up here was benign. She was given Motrin for neck pain which did help. Her CBC and CMP are within normal limits TS done of the brain which was negative. Her exam as well as her description is somewhat consistent with a trigeminal neuralgia. She will be given a priority appointment with neurology for close follow-up. She is advised should she have any worse pain or worsening symptoms to return the emergency department. Attending Note I have personally performed a face to face assessment of the patient and have reviewed the [facility] note. I performed a substantive portion of the visit including all aspects of the following. My wiggins findings include: History is 22-year-old c (more content not included)... Normal [facility] Cervical or vagninal specime n microscopic examination by cytology stain (reported ason 06-23-2022 Cytology report Cyto stain Doc (Cvx/Vag) Comment . [facility] Work Phone: Comment on above: The Pap smear is a s creening test designed to aid in thedetection of premalignant and malignant conditions of theuterine cervix. It is not a diagnostic procedure andshould not be used as the sole means of detecting cervicalcancer. Both false-positive and false-negative reports dooccur. Laboratory - Cytologyon 06-05 Vacation Sales Advisor Cyto stain Nom (Cvx/Vag) [ID] Comment . [facility] Work Phone: Comment on above: Josiane Vera Cytot echnologist (ASCP) Laboratory - Miscellaneous t estson 06-23-2022 Service comment (Unsp spec) [Interp] Comment . [facility] Work Phone: Comment on above: This liquid based Th inPrep(R) pap test was screened withthe use of an image guided system. Service comment (Unsp spec) [Interp] . . [facility] Work Phone: No Panel Informationon 06-23 Human Papillomavirus Screen Comment . [facility] Work Phone: Comment on above: The HPV DNA reflex mikhail españa were not met with this specimenresult therefore, no HPV testing was performed.Performed at: [address] [id number] Director: Amada Fonseca MD, Phone: [phone] Pap Smear QC Review Comment . [facility] Work Phone: Comment on above: Mikhail Mijares ytotechnologist ([facility]) Pathology report final diagnosis Narrative Comment . [facility] Work Phone: Comment on above: NEGATIVE FOR INTRAEP ITHELIAL LESION OR MALIGNANCY.THIS SPECIMEN WAS RESCREENED PART OF OUR FILTER WASHER AND PRESSER PROGRAM. IO Rapid Strepon 11-29-2021 S. pyogenes Ag Ql (Throat) Negative [facility] Work Phone: Office Visit (Urgent Care)on 11-29-2021 Follow-up visit Diagnoses/Problems Assessed Sore throat (462) (J02.9) Orders Sore throat IO Rapid Strep; Status:Resulted - Requires Verification,Retrospective Authorization; Done: 29Nov2021 03:12PM Performed:In Office; Due:[id number]; Last Updated By:Fay Mckinney; 11/29/2021 3:12:22 PM;Ordered; For:Sore throat; Ordered By:Jensen Montoya; Patient Discussion/Summary Sore throat. Increase rest and fluids. OTC meds as needed. Follow up with your PCP as needed. Provider Impressions Sore throat. Increase rest and fluids. OTC meds as needed. Follow up with your PCP as needed. Chief Complaint Chief Complaints Sore Throat History of Present Illness Patient is a 21-year-old female with chief complaint of sore throat for 2 days. Patient denies any known strep or mono exposure. Patient denies any fevers or chills. Patient denies any eye discharge, but has eye pain. Patient denies any ear blockage, but complains of ear pain. Patient denies any coughs, wheezing, chest pain or shortness of breath. Patient states partial relief with vyux-vos-weglfqi medications. Review of Systems Constitutional: as noted in HPI. Eyes: as noted in HPI. ENT: as noted in HPI. Cardiovascular: as noted in HPI. Respiratory: as noted in HPI. Active Problems Problems Anemia (285.9) (D64.9) Mononucleosis (075) (B27.90) resolving Sore throat (462) (J02.9) Tinea corporis (110.5) (B35.4) Well child visit (V20.2) (Z00.129) Past Medical History Problems Acute pharyngitis (462) (J02.9) Resolved Date: 09 Dec 2016 Eustachian tube dysfunction (381.81) (H69.80) Resolved Date: 09 Dec 2016 History of abdominal pain (V13.89) (Z87.898) Resolved Date: 05 Aug 2016 Added by Problem List Migration; 2013-06-20 History of constipation (V12.79) (Z87.19) Resolved Date: 05 Aug 2016 Added by Problem List Migration; 2013-06-20 History of fatigue (V13.89) (Z87.898) Resolved Date: 05 Aug 2016 History of fever (V13.89) (Z87.898) Resolved Date: 24 Feb 2018 History of pharyngitis (V12.69) (Z87.09) Resolved Date: 18 Nov 2016 History of sore throat (V12.69) (Z87.09) Resolved Date: 24 Feb 2018 History of Viral URI (465.9) (J06.9) Resolved Date: 18 Nov 2016 Family History Mother No pertinent family history Social History Problems Never a smoker Allergies Medication No Known Drug Allergies Recorded By: Zee Lau; 05/10/2014 11:19:37 AM Current Meds Medication NameInstruction Clotrimazole 1 % External CreamAPPLY SPARINGLY TO AFFECTED AREA(S) TWICE DAILY Marlissa 0.15-30 MG-MCG Oral TabletTAKE 1 TABLET BY MOUTH DAILY Vitals Vital Signs Recorded: 29Nov2021 03:04PM Rclfbvwbsgl99.4 F Heart Slan286 Epdjlkplfrk52 Rretzxrt417 Kzqiazcma43 Height5 ft 6 in Xiwsyk363 lb BMI Pihmneyipq58.56 kg/m2 BSA Calculated1.58 Tobacco Useb) No PHQ-2 #1. Over the last 2 weeks have you felt down, depressed or hopeless? (If yes, answer PHQ-9 below)No PHQ-2 #2. Over the last 2 weeks have you felt little interest or pleasure in doing things? (If yes, answer PHQ-9 below)No Fall Screeninga) No falls within the last year O2 [id number] Pain Scale4 Physical Exam Vital signs were reviewed. GENERAL:Patient appears well nourished and is comfortable. HEAD:Patient has no tenderness to palpation over the frontal and maxillary sinuses. EYES:DMITRY. Conjunctiva is clear. EARS:Canals are patent, without erythema, and TM's are clear and non-bulging. NOSE:Turbinates are not boggy or pale, and the septum is in tact. THROAT:Tonsils are normal in size and lack exudate. Posterior pharynx is erythematous. No PND NECK:There is no cervical lymphadenopathy or decreased ROM HEART:RRR. Has S1S2, no S3S4, rubs, clicks or murmurs. LUNGS:CTAB. Effort is normal. Results/Data IO Rapid [id number] 03:12PMSmitJensen bingham Test NameResultFlagReference IO Rapid StrepNegative Signatures Electronically signed by : Jensen Montoya DO; Nov 29 2021 3:28PM EST (Author) [employer] Tobacco Screening.on 022 Adult depression screening assessment No [facility] Work Phone: Fall risk assessment a) No falls within the last year [facility] Work Phone: Tobacco use status [facility]PH[facility] b) No [facility] Work Phone: SARS CoV 2 RNA(COVID 19), QU ALITATIVE NAATon 10-05-2020 SARS CoV 2 RNA NOT DETECTED Normal NOT DETECTED [facility] Comment on above: Order Comment: 0 Result Comment: A Not Detected (negative) test result for this test means that SARS-CoV-2 RNA was not present in the specimen above the limit of detection. A negative result does not rule out the possibility of COVID-19 and should not be used as the sole basis for treatment or patient management decisions. If COVID-19 is still suspected, based on exposure history together with other clinical findings, re-testing should be considered in consultation with public health authorities. Laboratory test results should always be considered in the context of clinical observations and epidemiological data in making a final diagnosis and patient management decisions. This patient specimen was tested using an FDA EUA pooling method. Patient specimens with low viral loads may not be detected in sample pools due to the decreased sensitivity of pooled testing. Please review the Fact Sheets and FDA authorized labeling available for health care providers and patients using the following websites: [email or web address]/home/[email or web address]/[email or web address]/fact-sheet2 [email or web address]/home/Covid-19/Patients/NAAT/ fact-sheet2 This test has been authorized by the FDA under an Emergency Use Authorization (EUA) for use by authorized laboratories. Due to the current public health emergency, [facility] is receiving a high volume of samples from a wide variety of swabs and media for COVID-19 testing. In order to serve patients during this public health crisis, samples from appropriate clinical sources are being tested. Negative test results derived from specimens received in non-commercially manufactured viral collection and transport media, or in media and sample collection kits not yet authorized by FDA for COVID-19 testing should be cautiously evaluated and the patient potentially subjected to extra precautions such as additional clinical monitoring, including collection of an additional specimen. Methodology: Nucleic Acid Amplification Test (NAAT) includes RT-PCR or TMA Additional information about COVID-19 can be found at the [facility] website: [email or web address]. Performed By: #### [id number] #### [facility] [address], [address] [place] [address] Tong Setter: Rusty Ferrell MD CBC DIFFERENTIAL PATH REVIEW on 02-25-2018 PATH REV-DIFFERENTIAL NereydaZuhairJANICEJOSELINE Normal [facility] Comment on above: Result Comment: By h er/his signature above, the Pathologist listed as making the final interpretation certifies that she/he has personally reviewed this case. REACTIVE LYMPHOCYTES SUGGESTIVE OF VIRAL INFECTION. Performed By: #### P R1 ####[id number] [id number] EBV PANELon 02-25-2018 EBV EA-D IGG ANTIBODY Positive Abnormal NEGATIVE [facility] Comment on above: Performed By: #### E BVP1 ####[id number] [id number] EBV INTERPRETATION SEE BELOW Normal [facility] Comment on above: Result Comment: . EB V INTERPRETATION CHART. VCA-IGG VCA-IGM NA-IGG EA-IGG. PRIMARY ACUTE +/- +/- - +/-LATE ACUTE + +/- +/- +/-RECOVERING + - - +PREVIOUS INFECTION + - +/- - Performed By: #### E BVP1 ####[id number] [id number] EBV NA-1 IGG ANTIBODY Negative Normal NEGATIVE [facility] Comment on above: Performed By: #### E BVP1 ####[id number] [place] [address] VCA IGG ANTIBODY Negative Normal NEGATIVE [facility] Comment on above: Performed By: #### E BVP1 ####[id number] [place] [address] VCA IGM ANTIBODY Positive Abnormal NEGATIVE [facility] Comment on above: Performed By: #### E BVP1 ####[id number] [place] [address] CBC AND DIFFERENTIALon 02-24 % AUTOMATED IMMATURE GRAN 0.4 % Normal 0.0 - 0.9 [facility] Comment on above: Order Comment: RESUL TS FAXED SPOKE WITH JENNIFER, 02/24/2018 13:33 Result Comment: Perc ent differential counts (%) should be interpreted in the context of the absolute cell counts (cells/L). Performed By: #### C BCDF ####[id number] [place] [address] DIFFERENTIAL SEE MANUAL DIFF Normal [facility] Comment on above: Order Comment: RESUL TS FAXED SPOKE WITH JENNIFER, 02/24/2018 13:33 Result Comment: This is a corrected result. Previous value was DNR, verified at 02/24/201810:54 Performed By: #### C BCDF ####[id number] [place] [address] Erythrocyte distribution width Auto Ratio (RBC) 14.1 % Normal 11.5 - 14.5 [facility] Comment on above: Order Comment: RESUL TS FAXED SPOKE WITH JENNIFER, 02/24/2018 13:33 Performed By: #### C BCDF ####[id number] [place] [address] Hematocrit Auto Volume Fraction (Bld) 35.8 % Low 36.0 - 46.0 [facility] Comment on above: Order Comment: RESUL TS FAXED SPOKE WITH JENNIFER, 02/24/2018 13:33 Performed By: #### C BCDF ####[id number] [place] [address] Hemoglobin mass conc (Bld) 11.4 g/dL Low 12.0 - 16.0 [facility] Comment on above: Order Comment: RESUL TS FAXED SPOKE WITH JENNIFER, 02/24/2018 13:33 Performed By: #### C BCDF ####[id number] [place] [address] MCHC Auto mass conc (RBC) 31.8 g/dL Low 32.0 - 36.0 [facility] Comment on above: Order Comment: RESUL TS FAXED SPOKE WITH JENNIFER, 02/24/2018 13:33 Performed By: #### C BCDF ####[id number] [place] [address] MCV Auto Entitic volume (RBC) 84 fL Normal 80 - 100 [facility] Comment on above: Order Comment: RESUL TS FAXED SPOKE WITH JENNIFER, 02/24/2018 13:33 Performed By: #### C BCDF ####[id number] [place] [address] Nucleated RBC/100 WBC Ratio (Bld) 0.0 /100 WBC Normal 0.0-0.0 [facility] Comment on above: Order Comment: RESUL TS FAXED SPOKE WITH JENNIFER, 02/24/2018 13:33 Performed By: #### C BCDF ####[id number] [place] [address] Platelets Auto #/vol (Bld) 232 10*3/uL Normal 150 - 450 [facility] Comment on above: Order Comment: RESUL TS FAXED SPOKE WITH JENNIFER, 02/24/2018 13:33 Performed By: #### C BCDF ####[id number] [place] [address] RBC Auto #/vol (Bld) 4.27 x10E12/L Normal 4.00 - 5.20 [facility] Comment on above: Order Comment: RESUL TS FAXED SPOKE WITH JENNIFER, 02/24/2018 13:33 Performed By: #### C BCDF ####[id number] [place] [address] WBC Auto #/vol (Bld) 10.7 10*3/uL Normal 4.4 - 11.3 [facility] Comment on above: Order Comment: RESUL TS FAXED SPOKE WITH JENNIFER, 02/24/2018 13:33 Performed By: #### C BCDF ####[id number] [place] [address] GROUP A STREP SCREENon 02-24 GROUP A STREP SCREEN PATIENT: MAEGAN QUINTERO [place] [facility] [place] [id number] : 89 AGE: SEX: F ORDERED BY: ANNA GRIGSBY: Throat/Pharynx COLLECTED: 02/24/18 10:31ANTIBIOTICS AT MAI.: RECEIVED : 02/25/18 00:13SITE: THROAT R E S U L T S GROUP A STREP SCREEN FINAL 02/26/18 14:20 NEGATIVE FOR GROUP A BETA STREP. Normal [facility] Comment on above: Performed By: #### G ASCR ####[id number] [place] [address] HETEROPHILE ANTIBODYon 02-24 HETEROPHILE ANTIBODY Negative Normal NEGATIVE [facility] Comment on above: Order Comment: RESUL TS GIVEN TO DR. GRIGSBY, 02/24/2018 10:54 Result Comment: RESU LTS GIVEN TO DR. GRIGSBY, 02/24/2018 10:54 Performed By: #### Nereyda ETTAMRA ####RAFITA [address] [address] MANUAL DIFFERENTIALon 2017 % BAND NEUTROPHIL 21.0 % Normal 0.0 - 5.0 [facility] Comment on above: Performed By: #### M DIFF ####[id number] [place] [address] % BASOPHIL 0.0 % Normal 0.0 - 2.0 [facility] Comment on above: Performed By: #### M DIFF ####[id number] [place] [address] % EOSINOPHIL 0.0 % Normal 0.0 - 6.0 [facility] Comment on above: Performed By: #### M DIFF ####[id number] [place] [address] % LYMPH-ATYPICAL 14.0 % Normal 0.0 - 2.0 [facility] Comment on above: Performed By: #### M DIFF ####[id number] [place] [address] % LYMPHOCYTE 23.0 % Normal 13.0 - 44.0 [facility] Comment on above: Performed By: #### M DIFF ####[id number] [place] [address] % MONOCYTE 11.0 % Normal 2.0 - 10.0 [facility] Comment on above: Performed By: #### M DIFF ####[id number] [place] [address] % SEG NEUTROPHIL 31.0 % Normal 40.0 - 80.0 [facility] Comment on above: Result Comment: Perc ent differential counts (%) should be interpreted in the context of the absolute cell counts (cells/L). Performed By: #### M DIFF ####[id number] [place] [address] ANC 5.57 X10E9/L Normal 1.20 - 7.70 [facility] Comment on above: Performed By: #### M DIFF ####[id number] [place] [address] BAND NEUTROPHIL 2.25 X10E9/L High 0.00 - 0.70 [facility] Comment on above: Performed By: #### M DIFF ####[id number] [place] [address] BASOPHIL 0.00 x10E9/L Normal 0.00 - 0.10 [facility] Comment on above: Performed By: #### M DIFF ####[id number] [place] [address] EOSINOPHIL 0.00 x10E9/L Normal 0.00 - 0.70 [facility] Comment on above: Performed By: #### M DIFF ####[id number] [place] [address] LYMPH-ATYPICAL 1.50 x10E9/L High 0.00 - 0.50 [facility] Comment on above: Performed By: #### M DIFF ####[id number] [place] [address] LYMPHOCYTE 2.46 x10E9/L Normal 1.20 - 4.80 [facility] Comment on above: Performed By: #### M DIFF ####[id number] [place] [address] MONOCYTE 1.18 X10E9/L High 0.10 - 1.00 [facility] Comment on above: Performed By: #### M DIFF ####[id number] [place] [address] SEG NEUTROPHIL 3.32 X10E9/L Normal 1.20 - 7.00 [facility] Comment on above: Performed By: #### M DIFF ####[id number] [place] [address] RED CELL MORPHOLOGYon 2017 RBC morphology finding Nom (Bld) SEE COMMENT Normal [facility] Comment on above: Result Comment: NO S IGNIFICANT RBC ABNORMALITIES SEEN ONSMEAR REVIEW. Performed By: #### M ORP2 ####[id number] [place] [address] GROUP A STREP SCREENon 06-24 GROUP A STREP SCREEN PATIENT: MAEGAN QUINTERO LOCATION: [address]#: [id number] : 89 AGE: SEX: F ORDERED BY: CHENTE GALLAGHER: Throat/Pharynx COLLECTED: 06/24/17 14:57ANTIBIOTICS AT MAI.: RECEIVED : 06/24/17 23:21SITE: R E S U L T S GROUP A STREP SCREEN FINAL 06/26/17 12:25 NEGATIVE FOR GROUP A BETA STREP. Normal [facility] Comment on above: Performed By: #### G ASCR ####[id number] [place] [address] Vital Signs Date Time Vital Sign Value Performing Clinician Facility 07-07-2024 16:36-0500 Body height 167.6 cm Eliane Haas PA-C Work Phone: [facility] 07-07-2024 16:36-0500 Body mass index (BMI) [Ratio] 19.43 kg/m2 Eliane Haas PA-C Work Phone: [facility] 07-07-2024 16:36-0500 Body temperature 97.9 [degF] Eliane Haas PA-C Work Phone: [facility] 07-07-2024 16:36-0500 Body weight 54.61 kg Eliane Haas PA-C Work Phone: [facility] 07-07-2024 16:36-0500 Diastolic blood pressure 80 mm[Hg] Eliane Haas PA-C Work Phone: [facility] 07-07-2024 16:36-0500 Heart rate 80 /min Eliane Haas PA-C Work Phone: [facility] 07-07-2024 16:36-0500 SaO2% (BldA) [Mass fraction] 100 % Eliane Haas PA-C Work Phone: [facility] 07-07-2024 16:36-0500 Systolic blood pressure 123 mm[Hg] Eliane Haas PA-C Work Phone: [facility] 05-15-2024 19:50-0500 Body height 167.6 cm Mary Matteo PA-C Work Phone: [facility] 05-15-2024 19:50-0500 Body mass index (BMI) [Ratio] 18.88 kg/m2 Mary Matteo PA-C Work Phone: [facility] 05-15-2024 19:50-0500 Body temperature 98.8 [degF] Mary Matteo PA-C Work Phone: [facility] 05-15-2024 19:50-0500 Body weight 53.07 kg Mary Matteo PA-C Work Phone: [facility] 05-15-2024 19:50-0500 Diastolic blood pressure 71 mm[Hg] Mary Matteo PA-C Work Phone: [facility] 05-15-2024 19:50-0500 Heart rate 93 /min Mary Matteo PA-C Work Phone: [facility] 05-15-2024 19:50-0500 Respiratory rate 16 /min Mary Matteo PA-C Work Phone: [facility] 05-15-2024 19:50-0500 SaO2% (BldA) [Mass fraction] 98 % Mary Matteo PA-C Work Phone: [facility] 05-15-2024 19:50-0500 Systolic blood pressure 118 mm[Hg] Mary Matteo PA-C Work Phone: [facility] 06-02-2022 17:03-0500 Body mass index (BMI) [Ratio] 18.7 kg/m2 [facility] Work Phone: 06-02-2022 17:03-0500 Body temperature 98.2 [degF] [facility] Work Phone: 06-02-2022 17:03-0500 Body weight 52.61 kg [facility] Work Phone: 06-02-2022 17:03-0500 Diastolic blood pressure 50 mm[Hg] [facility] Work Phone: 06-02-2022 17:03-0500 Heart rate 110 /min [facility] Work Phone: 06-02-2022 17:03-0500 Respiratory rate 18 /min [facility] Work Phone: 06-02-2022 17:03-0500 SaO2% (BldA) [Mass fraction] 98 % [facility] Work Phone: 06-02-2022 17:03-0500 Systolic blood pressure 101 mm[Hg] [facility] Work Phone: 11-29-2021 15:04-0400 Body height 167.64 cm Kenney Thorne Work Phone: [facility] Work Phone: 11-29-2021 15:04-0400 Body mass index (BMI) [Ratio] 18.56 kg/m2 Kenney Thorne Work Phone: [facility] Work Phone: 11-29-2021 15:04-0400 Body surface area Derived from formula 1.58 m2 Kenney Thorne Work Phone: [facility] Work Phone: 11-29-2021 15:04-0400 Body temperature 98.4 [degF] Kenney Thorne Work Phone: [facility] Work Phone: 11-29-2021 15:04-0400 Body weight 52.16 kg Kenney Thorne Work Phone: [facility] Work Phone: 11-29-2021 15:04-0400 Diastolic blood pressure 66 mm[Hg] Kenney Thorne Work Phone: [facility] Work Phone: 11-29-2021 15:04-0400 Heart rate 102 /min Kenney Thorne Work Phone: [facility] Work Phone: 11-29-2021 15:04-0400 Respiratory rate 14 /min Kenney Thorne Work Phone: [facility] Work Phone: 11-29-2021 15:04-0400 SaO2% (BldA) [Mass fraction] 99 % Kenney Thorne Work Phone: [facility] Work Phone: 11-29-2021 15:04-0400 Systolic blood pressure 120 mm[Hg] Kenney Thorne Work Phone: [facility] Work Phone: 11-29-2021 15:04-0400 4 1 Kenney Thorne Work Phone: [facility] Work Phone: Comment on above: [employer] Encounters Encounter Date Encounter Type Care Provider Facility Start: 07-20-2024 Encounter for gynecological examination (general) (routine) without abnormal findings Kenney Siddiqison [facility] Start: 07-07-2024 End: 07-07-2024 Office outpatient visit 15 minutes Eliane Haas PA-C Work Phone: [facility] Comment on above: Strain of great toe of right foot, initial encounter (Primary Dx) Start: 06-17-2024 End: 06-17-2024 ambulatory Kenney Thorne Facility:[facility] Start: 05-15-2024 End: 05-15-2024 Office outpatient new 30 minutes Mary Felipe PA-C Work Phone: [facility] Comment on above: Tooth ache (Primary Dx); Tooth infection Start: 03-04-2023 End: 03-04-2023 Emergency department patient visit WILLIAM BURROUGHS MD Facility:[facility] Start: 02-20-2023 End: 02-20-2023 Emergency department patient visit JOEL PARSON Facility:[facility] Start: 06-23-2022 End: 06-23-2022 ambulatory [facility] Work Phone: Start: 06-23-2022 End: 06-23-2022 Patient encounter procedure [facility]-Laboratory, Specimen Start: 06-23-2022 Patient encounter status [facility] Work Phone: Start: 11-29-2021 Office outpatient ne w 30 minutes Kenney Siddiqison Work Phone: [facility] Work Phone: Start: 03-09-2018 Patient encounter Zenaida Moss acility:[id number] Start: 02-24-2018 Patient encounter Zenaida Moss acility:9483 Start: 02-24-2018 Patient encounter JANE PLATT Fa cility:[facility] Start: 06-24-2017 Patient encounter ANTONI GALLAGHER Fa cility:[id number] Start: 06-04-2017 Patient encounter Zenaida Moss acility:9483 Patient encounter status Kenney Thorne Work Phone: [facility] Work Phone: Plan of Treatment Date Care Activity Detail Author Start: 2049 Zoster Vaccines (1 of 2) Zoste r Vaccines (1 of 2) [facility] Start: 03-04-2033 DTaP/Tdap/Td Vaccine s (9 - Td or Tdap) DTaP/Tdap/Td Vaccines (9 - Td or Tdap) [facility] Start: 03-06-2024 COVID-19 Vaccine ( season) COVID-19 Vaccine ( season) [facility] Start: 03-06-2024 Influenza vaccination Influenza Vacc ine (#1) [facility] Start: 2020 Screening for malign ant neoplasm of cervix [facility] Start: 2017 Hepatitis C screening Hepatitis C Sc reening [facility] Start: 11-27-2004 Varicella vaccination Varicell a Vaccines (2 of 2 - 2-dose childhood series) [facility] Start: 1999 HIV screening HIV Screening [facility] Start: 1999 Lip[address]id Panel [facility] Start: 1999 Yearly Adult Physical Yearly Adult P hysical [facility] Immunizations Immunization Date Immunization Notes Care Provider Fa sandro 06-04-2017 Human Papillomavirus 9-valent vaccine; Translations: [Gardasil 9 Intramuscular Suspension] Kenney Thorne Work Phone: [facility] Work Phone: Comment on above: Series: 01-27-2017 human papilloma viru s vaccine, quadrivalent; Translations: [HPV (Gardasil)] Kenney Thorne Work Phone: [facility] Work Phone: Comment on above: Series: 11-18-2016 Human Papillomavirus 9-valent vaccine; Translations: [Gardasil 9 Intramuscular Suspension] Kenney Thorne Work Phone: [facility] Work Phone: Comment on above: Series: 11-18-2016 meningococcal polysaccharide (groups A, C, Y and W-135) diphtheria toxoid conjugate vaccine (MCV4P); Translations: [Menactra Intramuscular Injectable] Kenney Thorne Work Phone: [facility] Work Phone: Comment on above: Series: 12-22-2011 meningococcal polysaccharide (groups A, C, Y and W-135) diphtheria toxoid conjugate vaccine (MCV4P) Kenney Thorne Work Phone: [facility] Work Phone: Comment on above: Series: 12-22-2011 tetanus toxoid, redu aravind diphtheria toxoid, and acellular pertussis vaccine, adsorbed Kenney Thorne Work Phone: [facility] Work Phone: Comment on above: Series: 10-30-2004 diphtheria, tetanus toxoids and acellular pertussis vaccine Kenney Thorne Work Phone: [facility] Work Phone: Comment on above: Series: 10-30-2004 measles, mumps and rubella virus vaccine Kenney Thorne Work Phone: [facility] Work Phone: Comment on above: Series: 10-30-2004 poliovirus vaccine, inactivated Kenney Thorne Work Phone: [facility] Work Phone: Comment on above: Series: 03-25-2001 pneumococcal polysaccharide vaccine, 23 valent Kenney Thorne Work Phone: [facility] Work Phone: Comment on above: Series: 10-27-2000 diphtheria, tetanus toxoids and acellular pertussis vaccine Kenney Thorne Work Phone: [facility] Work Phone: Comment on above: Series: 07-28-2000 haemophilus influenz ae type b vaccine, PRP-OMP conjugate Kenney Thorne Work Phone: [facility] Work Phone: Comment on above: Series: 07-28-2000 measles, mumps and rubella virus vaccine Kenney Thorne Work Phone: [facility] Work Phone: Comment on above: Series: 04-28-2000 varicella virus vaccine Kenney Thorne Work Phone: [facility] Work Phone: Comment on above: Series: 01-23-2000 hepatitis B vaccine, pediatric or pediatric/adolescent dosage Kenney Thorne Work Phone: [facility] Work Phone: Comment on above: Series: 1999 diphtheria, tetanus toxoids and acellular pertussis vaccine Kenney Thorne Work Phone: [facility] Work Phone: Comment on above: Series: 1999 haemophilus influenz ae type b vaccine, PRP-OMP conjugate Kenney Thorne Work Phone: [facility] Work Phone: Comment on above: Series: 1999 poliovirus vaccine, inactivated Kenney Thorne Work Phone: [facility] Work Phone: Comment on above: Series: 1999 diphtheria, tetanus toxoids and acellular pertussis vaccine Kenney L Thorne Work Phone: [facility] Work Phone: Comment on above: Series: 1999 haemophilus influenz ae type b vaccine, PRP-OMP conjugate Kenney L Thorne Work Phone: [facility] Work Phone: Comment on above: Series: 1999 poliovirus vaccine, inactivated Kenney L Thorne Work Phone: [facility] Work Phone: Comment on above: Series: 1999 diphtheria, tetanus toxoids and acellular pertussis vaccine Kenney L Thorne Work Phone: [facility] Work Phone: Comment on above: Series: 1999 haemophilus influenz ae type b vaccine, PRP-OMP conjugate Kenney L Thorne Work Phone: [facility] Work Phone: Comment on above: Series: 1999 hepatitis B vaccine, pediatric or pediatric/adolescent dosage Kenney L Thorne Work Phone: [facility] Work Phone: Comment on above: Series: 1999 poliovirus vaccine, inactivated Kenney L Thorne Work Phone: [facility] Work Phone: Comment on above: Series: 1999 hepatitis B vaccine, pediatric or pediatric/adolescent dosage Kenney L Thorne Work Phone: [facility] Work Phone: Comment on above: Series: Payers Date Payer Category Payer Private Health Insurance [id number] 2024 Self-pay [id number] 2023 Managed Care (Private) [facility] [id number] 2023 Unknown [id number] 2022 Unknown [id number] Unknown [facility] Unknown [id number] Social History Date Type Detail Facility Start: 07-07-2024 Never a smoker Never a smoker -[facility] Work Phone: Start: 10-25-2021 Tobacco smoking status [facility] Unknown if ever smoked [facility] Work Phone: Start: 1999 Sex Assigned At Female [facility] Work Phone: Start: 05-15-2024 Tobacco smoking status [facility]IS Never smoked tobacco [facility] Work Phone: Start: 05-15-2024 Tobacco use and exposure Smokeless tobacco non-user [facility] Work Phone: Start: 1999 Sex assigned at Not on file [facility] Work Phone: Start: 07-07-2024 Gender identity Not on file [facility] Work Phone: NEGATED: Highlighted rowStart: NINF History of tobacco use Passive smoker [facility] Work Phone: History of Present illness Narrative 07-07-2024 Eliane Haas PA-C - 07/07/2024 4:00 PM EST Note Date & Type Note Facility 07-07-2024 History of Present illness Narrative Images from the original note were not included. Subjective Patient ID: Maegan Quintero is a 24 y.o. female. They present today with a chief complaint of Foot Injury (05/11/24). History of Present Illness Maegan is a healthy 24 year old female presents to with R great toe pain. She reports being at a concert 2 months ago when she felt immediate pain and felt like her R great toe dislocated. She did pop it back into place. Since has developed plantar pain along proximal toe. No injury, no one stepped on her foot. She is active, exercises and runs. Foot Injury Past Medical History Allergies as of 07/07/2024 (No Known Allergies) (Not in a hospital admission) Past Medical History: Diagnosis Date Acute upper respiratory infection, unspecified 08/05/2016 Viral URI Personal history of other diseases of the digestive system 05/12/2014 History of constipation Personal history of other diseases of the respiratory system 08/05/2016 History of pharyngitis Personal history of other diseases of the respiratory system History of sore throat Personal history of other specified conditions 05/12/2014 History of abdominal pain Personal history of other specified conditions 05/12/2014 History of fatigue Personal history of other specified conditions 06/24/2017 History of fever No past surgical history on file. reports that she has never smoked. She has never been exposed to tobacco smoke. She has never used smokeless tobacco. Review of Systems Review of Systems Objective Vitals: 07/07/24 1636 BP: 123/80 BP Location: Right arm Patient Position: Sitting BP Cuff Size: Small adult Pulse: 80 Temp: 36.6 C (97.9 F) TempSrc: Oral SpO2: 100% Weight: 54.6 kg (120 lb 6.4 oz) Height: 1.676 m (5' 6) Patient's last menstrual period was 06/16/2024 (approximate). Physical Exam Vitals and nursing note reviewed. Constitutional: Appearance: Normal appearance. HENT: Head: Normocephalic and atraumatic. Eyes: Conjunctiva/sclera: Conjunctivae normal. Cardiovascular: Pulses: Posterior tibial pulses are 2+ on the left side. Pulmonary: Effort: Pulmonary effort is normal. Musculoskeletal: Left foot: Normal range of motion. Feet: Feet: Left foot: Skin integrity: Skin integrity normal. No ulcer, skin breakdown, erythema or warmth. Toenail Condition: Left toenails are normal. Comments: TTP along plantar proximal first MTP. Strong pedal pulse. Normal ROM. Cap refill WNL. Neurological: Mental Status: She is alert. Procedures Point of Care Test & Imaging Results from this visit No results found for this visit on 07/07/24. XR foot right 3+ views Result Date: 07/07/2024 Interpreted By: Jim Kaye, STUDY: XR FOOT RIGHT 3+ VIEWS INDICATION: Signs/Symptoms:pain, injury prox great toe. COMPARISON: None ACCESSION NUMBER(S): [id number] ORDERING CLINICIAN: ELIANE HAAS FINDINGS: No osseous, articular, or soft tissue abnormality. Normal radiographs right foot. Attention to the great toe demonstrates no specific abnormality. Signed by: Jim Kaye 07/07/2024 5:46 PM Dictation workstation: [id number] Diagnostic study results (if any) were reviewed by Eliane Haas PA-C. Assessment/Plan Allergies, medications, history, and pertinent labs/EKGs/Imaging reviewed by Eliane Haas PA-C. Medical Decision Making Maegan presents to with R great toe pain after a suspected dislocation 2 months ago. XR obtained due to ongoing pain showing no acute findings. Suspect more tendinopathy. Continue tylenol/motrin PRN and will refer to podiatry. Plan of care discussed with patient and/or family who verbalized understanding. Recommend Follow up with PCP. Advised seeking immediate emergency medical attention if symptoms fail to improve, worsen or any concerning symptoms arise. Patient/Guardian voiced full understanding and agreement to plan. Orders and Diagnoses Diagnoses and all orders for this visit: Strain of great toe of right foot, initial encounter - Referral to Podiatry; Future - XR foot right 3+ views; Future Medical Admin Record Patient disposition: Home Electronically signed by Eliane Haas PA-C 6:13 PM documented in this encounter [facility] Work Phone: History of Present illness Narrative 05-15-2024 Mary Felipe PA-C - 05/15/2024 7:40 PM EST Note Date & Type Note Facility 05-15-2024 History of Present illness Narrative Subjective Patient ID: Maegan Quintero is a 24 y.o. female. They present today with a chief complaint of Dental Pain (Since this afternoon). History of Present Illness Pt presented with tooth aches started today. Noticed swelling of wisdom tooth area. Reports has impacted wisdom tooth. Did call dentist but cannot get service today. Dental Pain Associated symptoms: no drooling and no fever Past Medical History Allergies as of 05/15/2024 (No Known Allergies) (Not in a hospital admission) Past Medical History: Diagnosis Date Acute upper respiratory infection, unspecified 08/05/2016 Viral URI Personal history of other diseases of the digestive system 05/12/2014 History of constipation Personal history of other diseases of the respiratory system 08/05/2016 History of pharyngitis Personal history of other diseases of the respiratory system History of sore throat Personal history of other specified conditions 05/12/2014 History of abdominal pain Personal history of other specified conditions 05/12/2014 History of fatigue Personal history of other specified conditions 06/24/2017 History of fever No past surgical history on file. reports that she has never smoked. She has never been exposed to tobacco smoke. She has never used smokeless tobacco. Review of Systems Review of Systems Constitutional: Negative for chills, fatigue and fever. HENT: Positive for dental problem. Negative for drooling and sore throat. Respiratory: Negative for cough, chest tightness and shortness of breath. Cardiovascular: Negative for chest pain. Gastrointestinal: Negative for abdominal pain, diarrhea, nausea and vomiting. Musculoskeletal: Negative for arthralgias and joint swelling. Skin: Negative for rash. Psychiatric/Behavioral: Negative for agitation and confusion. Objective Vitals: 05/15/241949 BP: 118/71 BP Location: Right arm Patient Position: Sitting BP Cuff Size: Adult Pulse: 93 Resp: 16 Temp: 37.1 C (98.8 F) TempSrc: Oral SpO2: 98% Weight: 53.1 kg (117 lb) Height: 1.676 m (5' 6) Patient's last menstrual period was 2024 (approximate). Physical Exam Constitutional: Appearance: Normal appearance. HENT: Head: Normocephalic and atraumatic. Right Ear: Tympanic membrane, ear canal and external ear normal. Left Ear: Tympanic membrane, ear canal and external ear normal. Nose: Nose normal. Mouth/Throat: Mouth: Mucous membranes are moist. Dentition: Dental tenderness and gingival swelling present. Cardiovascular: Rate and Rhythm: Normal rate and regular rhythm. Heart sounds: No murmur heard. Pulmonary: Effort: Pulmonary effort is normal. No respiratory distress. Breath sounds: No stridor. No wheezing, rhonchi or rales. Musculoskeletal: General: Normal range of motion. Neurological: Mental Status: She is alert and oriented to person, place, and time. Psychiatric: Mood and Affect: Mood normal. Procedures Point of Care Test & Imaging Results from this visit No results found for this visit on 05/15/24. No results found. Diagnostic study results (if any) were reviewed by Mary Felipe PA-C. Assessment/Plan Allergies, medications, history, and pertinent labs/EKGs/Imaging reviewed by Mary Felipe PA-C. Medical Decision Making Tender and swelling of left lower wisdom tooth area Suspicious for infection/inflammation related to embedded wisdom tooth Orders and Diagnoses Diagnoses and all orders for this visit: Tooth ache - amoxicillin (Amoxil) 500 mg capsule; Take 1 capsule (500 mg) by mouth every 8 hours for 7 days. Tooth infection Medical Admin Record Patient disposition: Home Electronically signed by Mary Felipe PA-C 11:47 AM documented in this encounter [facility] Work Phone: Instructions 05-15-2024 Patient Instructions Note Date & Type Note Facility 05-15-2024 Instructions Mary Felipe PA-C - 05/15/2024 7:40 PM EST Ibuprofen q8hrs with food for pain F/U with dentist TIFFANIE to reassess condition documented in this encounter [facility] Work Phone: Clinical Note 06-23-2022 Note Date & Type Note Facility 06-23-2022 Note [facility] Work Phone: Pap Smear Specimen Adequacy June 23, 2022 11:59pm Comment . Satisfactory for evaluation. Endocervical and/or squamous metaplasticcells (endocervical component) are present. Comment on above: Satisfactory for alonzo luation. Endocervical and/or squamous metaplasticcells (endocervical component) are present. Evaluation note Note Date & Type Note Facility Evaluation note Diagnosis Onset Date Bilateral acute otitis media acute Maxillary sinusitis acute [facility] Work Phone: Evaluation note Note Date & Type Note Facility Evaluation note Diagnosis Tooth ache- Primary Tooth infection Acute apical periodontitis of pulpal origin documented in this encounter [facility] Work Phone: Evaluation note Note Date & Type Note Facility Evaluation note Diagnosis Strain of great toe of right foot, initial encounter- Primary Strain of great toe of right foot, initial encounter documented in this encounter [facility] Work Phone: History of Present illness Narrative Note Date & Type Note Facility History of Present illness Narrative Patient is a 21-year-old female with chief complaint of sore throat for 2 days. Patient denies any known strep or mono exposure. Patient denies any fevers or chills. Patient denies any eye discharge, but has eye pain. Patient denies any ear blockage, but complains of ear pain. Patient denies any coughs, wheezing, chest pain or shortness of breath. Patient states partial relief with [id number] medications. [facility] Work Phone: Summary Purpose Family History No Family History Records FoundUnknown Family Member Name Dates Details No pertinent family history: Mother(V49.89, Z78.9) Status:Active Relationship Condition Age at Onset Recorded Date/T janak Not Specified Malignant neoplasm of colon Unknown Diabetes mellitus Unknown Kidney disorder Unknown Status post kidney transplant Unknown Family history of hypercholesterolemia Un known Hypertension Unknown Cerebrovascular accident (CVA) Unknown Advance Directives No Advanced Directives Records FoundNo Advanced Directives Records FoundNo Advanced Directives Records FoundNo Advanced Directives Records FoundNo Advanced Directives Records Found Chief Complaint and Reason for Visit Chief Complaint Sore throat & ear in fection Reason for Visit Bilateral acute otit is media Maxillary sinusitis Additional Source Comments INFORMATION SOURCE (unrecogn ized section and content) DATE CREATED AUTHOR 03/15/2018 [facility] DATE CREATED AUTHOR AUTHOR'S ORGANIZ ATION 10/06/2020 [facility] DATE CREATED AUTHOR AUTHOR'S ORGANIZ ATION 11/30/2021 [employer] DATE CREATED AUTHOR AUTHOR'S ORGANIZ ATION 03/05/2023 [facility] DATE CREATED AUTHOR AUTHOR'S ORGANIZ ATION 07/23/2024 [facility] Goals (unrecognized section and content) Goals may be documented in a n alternate section Reason for Visit (unrecogniz ed section and content) Reason Comments Dental Pain Since this afternoon Reason Comments Foot Injury 05/11/24 Care Teams (unrecognized sec tion and content) Sales Account Coordinator Relationship Specialty Start Date End Date Kenney Thorne, [employer]EC[employer] [address] [employer] Family [place], [place] [id number] PCP - General 11/29/21 Sales Account Coordinator Relationship Specialty Start Date End Date Kenney Thorne, [employer] EXEC[employer]IVE [address] [employer] [place], [place] [id number] PCP - General 11/29/21 FOR RECORDS PERTAINING TO PATIENTS WHO ARE OR HAVE BEEN ENROLLED IN A CHEMICAL DEPENDENCY/SUBSTANCEABUSE PROGRAM, SOME INFORMATION MAY BE OMITTED. This clinical summary was aggregated from multiple sources. Caution should be exercised in using it in the provision of clinical care. This summary normalizes information from multiple sources, and as a consequence, information in this document may materially change the coding, format and clinical context of patient data. In addition, data may be omitted in some cases. CLINICAL DECISIONS SHOULD BE BASED ON THE PRIMARY CLINICAL RECORDS. [facility] [employer] provides no warranty or guarantee of the accuracy or completeness of information in this document.
[2025-03-09 22:41] LABS: Hematocrit 36.1 % (37-47); Hemoglobin 11.6 g/dL (12.0-15.0); Immature Granulocytes Count 0.040 X10^3/uL (0.0-0.0); Mean Corp Hgb Conc 32.1 g/dL (32-36); Mean Corpuscular Volume 78.8 fL (81-99); Mean Platelet Vol. 10.4 fl (6.2-12.0); NRBC Flagged by Analyzer 0 % (0-5); Platelet Count 326 K/mm3 (150-450); RBC Distribution Width CV 14.9 % (11.6-14.6); RBC Distribution Width SD 42.2 fl (35.1-43.9); Red Blood Count 4.58 M/mm3 (4.2-5.4); White Blood Count 9.8 K/mm3 (4.4-11.0)
[2025-03-13 16:09] LABS: EBV Acute VCA IgM < 36.0 U/mL (0.0-35.9); EBV-VCA IgG 266.0 U/mL (0.0-17.9)
== END | disposition home or self-care (01) ==
PROVIDERS: PCP Nurse Practitioner; Referring Provider Nurse Practitioner; Visit Provider Nurse Practitioner
DX: J02.9 Acute pharyngitis, unspecified (principal); R53.83 Other fatigue; R50.81 Fever presenting with conditions classified elsewhere
CPT/HCPCS: 85025; 86664; 86665